=== PATIENT | female | born 1970 | race Caucasian/White ===

== ENCOUNTER → 2016-08-26 | Outpatient (REF) ==
[2016-08-26 16:33] LABS: THYROID STIMULATING HORMONE 1.69 uIU/mL (0.465-4.680)
== END ==
LOC: ZLAB.WCH 15:44
PROVIDERS: Family Medicine
DX: Z01.89 Encounter for other specified special examinations (principal)

== ENCOUNTER 2017-05-14 07:28 | Day surgery (SDC) | payer BC ==
[2017-05-14] VITALS (8 sets, daily range): BP systolic 118–143; BP diastolic 69–108; PULSE 67–104; TEMP 97.5–98.2
[~2017-05-14] VITALS: Ht 152.4 cm; Wt 67.2 kg
[2017-05-14] MEDS ORDERED: SYNTHROID0.1 MG/TAB PO (08:34)
[2017-05-14] MEDS ORDERED: PERCOCET 325 MG1 TA2 PO (08:44)
[2017-05-14] MEDS ORDERED: MOTRIN 800800 MG/TAB PO (08:44)
== END 2017-05-14 16:35 ==
LOC: SDCO 07:28 → OB 12:10 → SDCO 16:35
DX: N70.11 Chronic salpingitis (principal); N73.6 Female pelvic peritoneal adhesions (postinfective); E03.9 Hypothyroidism, unspecified; N39.0 Urinary tract infection, site not specified; Z82.49 Family history of ischemic heart disease and other diseases of the circulatory system; Z83.3 Family history of diabetes mellitus; Z82.3 Family history of stroke
CPT/HCPCS: OP; A4314; J0690; J1100; J1885; J2405; J2704; J2710; J3010; J7120; Q9968

== ENCOUNTER → 2017-11-05 | Outpatient (REF) ==
[~2017-11-05] MED LIST: MOTRIN 800800 MG/TAB PO; PERCOCET 325 MG1 TA2 PO; SYNTHROID0.1 MG/TAB PO
[2017-11-05 16:29] LABS: THYROID STIMULATING HORMONE 1.6 uIU/mL (0.465-4.680)
== END ==
LOC: ZLAB.WCH 15:44
PROVIDERS: Family Medicine
DX: Z01.89 Encounter for other specified special examinations (principal)